=== PATIENT | male | born 1945 | race Caucasian/White ===

== ENCOUNTER 2024-02-09 11:43 | Observation (INO) | payer MEDICARE ==
[2024-02-09 12:30] LABS: BASOPHILS ABSOLUTE AUTO 0.06 K/uL (0.00-0.10); BASOPHILS PERCENT AUTO 0.7 % (0.1-1.3); EOSINOPHILS ABSOLUTE AUTO 0.07 K/uL (0.00-0.40); EOSINOPHILS PERCENT AUTO 0.8 % (0.0-5.4); HEMATOCRIT 36.9 % (38.4-49.7); HEMOGLOBIN 13.1 g/dL (12.9-16.9); IMMATURE GRAN PERCENT AUTO 0.2 % (0.0-0.7); LYMPHOCYTES ABSOLUTE AUTO 0.68 K/uL (0.8-3.3); LYMPHOCYTES PERCENT AUTO 8.1 % (11.4-47.7); MEAN CORPUSCULAR HEMOGLOBIN 32.5 pg (31.6-35.5); MEAN CORPUSCULAR HGB CONC 35.5 g/dL (31.6-35.5); MEAN CORPUSCULAR VOLUME 91.6 fL (81.4-99.0); NEUTROPHILS ABSOLUTE AUTO 7.02 K/uL (1.0-7.6); NEUTROPHILS PERCENT AUTO 84.2 % (40.0-78.1); PLATELET COUNT,PLT 168 K/uL (130-375); RED BLOOD CELL COUNT 4.03 M/uL (4.14-5.76); WHITE BLOOD CELL COUNT,WBC 8.4 K/uL (3.2-11.0)
[2024-02-09 12:32] LABS: IMMATURE GRAN ABSOLUTE AUTO 0.02 K/uL (0.00-0.23)
[2024-02-09 12:52] LABS: ALANINE AMINOTRANSFERASE,ALT 14 U/L (12-78); ALBUMIN 3.5 g/dL (3.4-5.0); ALKALINE PHOSPHATASE 41 U/L (46-116); ASPARTATE AMNIOTRANSFERASE,AST 13 U/L (15-37); BILIRUBIN TOTAL 0.7 mg/dL (0.2-1.0); BLOOD UREA NITROGEN,BUN 19 mg/dL (7-18); CALCIUM 9.1 mg/dL (8.5-10.1); CARBON DIOXIDE,CO2 25 mmol/L (21-32); CHLORIDE,CL 106 mmol/L (100-108); CREATININE 0.9 mg/dL (0.8-1.3); EST CRCL DRUG DOSING (CG) 53.93 mL/min; ESTIMATED GFR 89 mL/min (>60); GLUCOSE RANDOM 106 mg/dL (74-106); POTASSIUM,K 4.3 mmol/L (3.6-5.2); PROTEIN TOTAL,TP 6.9 g/dL (6.4-8.2); SODIUM,NA 141 mmol/L (140-148)
[2024-02-09] MEDS: Sodium Chloride 0.9% 1,000 ML IV ONE (12:54)
[2024-02-09] MEDS: Sodium Chloride 0.9% 1,000 ML IV SCH ×2 (14:16→23:03)
[2024-02-09] MEDS: Ondansetron 4 MG/2 ML SDV IVPUSH ONE (14:20)
[2024-02-09 17:09] LABS: BILIRUBIN,URINE NEGATIVE (NEGATIVE); COLOR,URINE YELLOW (YELLOW); GLUCOSE,URINE NEGATIVE (NEGATIVE); KETONES,URINE 40 mg/dL (NEGATIVE); LEUKOCYTE ESTERASE,URINE NEGATIVE (NEGATIVE); NITRITE,URINE NEGATIVE (NEGATIVE); OCCULT BLOOD,URINE NEGATIVE (NEGATIVE); PROTEIN,URINE NEGATIVE (NEGATIVE); UROBILINOGEN,URINE 0.2 EU/dL (0.2-1.0)
[2024-02-09 17:10] LABS: CORONAVIRUS COVID-19 NAA NEGATIVE (NEGATIVE); INFLUENZA A NAA NEGATIVE (NEGATIVE); INFLUENZA B NAA NEGATIVE (NEGATIVE); RESPIRATORY SYNCYTIAL VIR NAA NEGATIVE (NEGATIVE)
[2024-02-09 17:13] LABS: AMORPHOUS SEDIMENT,URINE NOT SEEN; APPEARANCE,URINE SLIGHTLY CLOUDY (CLEAR); BACTERIA,URINE FEW; EPITHELIAL CELLS,URINE NOT SEEN; MUCUS,URINE MANY; RBC,URINE 0-5 (0-5); WBC,URINE 0-5 (0-5)
[2024-02-09 18:33] LABS: AMPHETAMINES SCREEN, URINE NEGATIVE (NEGATIVE); BARBITURATE SCREEN,URINE NEGATIVE (NEGATIVE); BENZODIAZEPINES SCREEN,URINE NEGATIVE (NEGATIVE); METHADONE SCREEN, URINE NEGATIVE (NEGATIVE); METHAMPHETAMINES SCREEN, URINE NEGATIVE (NEGATIVE); OXYCODONE SCREEN,URINE NEGATIVE (NEGATIVE); PROPOXYPHENE SCREEN,URINE NEGATIVE (NEGATIVE); THC SCREEN,URINE 50 NG/ML NEGATIVE (NEGATIVE)
[2024-02-09 18:37] LABS: BASE EXCESS VENOUS 0.6 mm/L; BICARBONATE,VENOUS 25.1 mmol/L; CARBOXYHEMOGLOBIN 1.8 % (0.0-1.6); METHEMOGLOBIN 0.8 %; O2 SATURATION VENOUS 54.9; OXYHEMOGLOBIN 53.5 %; PCO2 VENOUS 42.3 mm/Hg; PH,VENOUS 7.391 (7.350-7.450); TOTAL HEMOGLOBIN 13.3 g/dL (13.5-18.0)
[2024-02-09 18:38] LABS: PO2 VENOUS 37.2 mm/Hg
[2024-02-09 18:46] LABS: MAGNESIUM 2.1 mg/dL (1.8-2.4); T4 FREE 0.94 ng/dL (0.76-1.46); TSH ULTRASENSITIVE 2.424 uIU/mL (0.358-3.740)
[2024-02-09] MEDS ORDERED: Ondansetron 4 MG Tab.DIS PO PRN (21:25)
[2024-02-09] MEDS ORDERED: Sennosides/Docusate Sodium 50-8.6 MG Tab PO PRN (21:25)
[2024-02-09] MEDS ORDERED: Melatonin 3 MG Tab PO PRN (21:25)
[2024-02-09] MEDS ORDERED: Ondansetron 4 MG/2 ML SDV IV PRN (21:25)
[2024-02-09] MEDS ORDERED: Acetaminophen 325 MG Tab PO PRN (21:25)
[2024-02-10 05:26] LABS: HEMATOCRIT 33.6 % (38.4-49.7); HEMOGLOBIN 11.6 g/dL (12.9-16.9); MEAN CORPUSCULAR HGB CONC 34.5 g/dL (31.6-35.5); MEAN CORPUSCULAR VOLUME 92.8 fL (81.4-99.0); RED BLOOD CELL COUNT 3.62 M/uL (4.14-5.76)
[2024-02-10 05:52] LABS: CALCIUM 8.4 mg/dL (8.5-10.1); CREATININE 0.8 mg/dL (0.8-1.3); EST CRCL DRUG DOSING (CG) 70.16 mL/min; POTASSIUM,K 4.1 mmol/L (3.6-5.2)
[2024-02-10 05:55] LABS: ANION GAP 12.1 mmol/L (5.0-14.0)
[2024-02-12 23:10] LABS: ANAPLASMA PHAGOCYTOPHILUM PCR Not Detected; BABESIA MICROTI BY PCR Not Detected; BABESIA SPECIES BY PCR Not Detected; EHRLICHIA CHAFFEENSIS BY PCR Not Detected; EHRLICHIA EWINGII/CANIS BY PCR Not Detected; EHRLICHIA MURIS-LIKE BY PCR Not Detected
== END 2024-02-10 14:19 | disposition home or self-care (01) ==
LOC: JP.ED 11:43 → JP.ICU 20:53
PROVIDERS: ADMIT Registered Nurse; ATTEND Hospitalist
DX: R42 Dizziness and giddiness (principal); R53.1 Weakness; Z20.822 Contact with and (suspected) exposure to COVID-19
CPT/HCPCS: 0241U; 36415; 70450; 70450-26; 71045; 71045-26; 80048; 80053; 80305-QW; 80307; 81001; 82140; 82550; 82803; 83735; 84145; 84439; 84443; 85025; 85027; 87468; 87469; 87484; 87798; 93005; 96361; 96374; 97161-GP; 99222; 99239; 99285-25; G0378; J2405; J7030